=== PATIENT | male | born 1990 | race Caucasian/White ===

== ENCOUNTER 2017-10-31 16:17 | Emergency (ER) | payer OTHER ==
[2017-10-31] MEDS ORDERED: Acetaminophen/HYDROcodone 325-10 MG Tab PO ONE ×2 (16:18→16:24)
[2017-10-31] MEDS ORDERED: Silver Sulfadiazine 1% Crm 50 GM Tube TOP ONE (16:23)
[2017-10-31] MEDS ORDERED: Diphtheria,Pertussis(Acell),Tetanus Vaccine 0.5 ML SDV IM ONE (16:28)
[2017-10-31] MEDS ORDERED: Lidocaine 5% Oint 35.44 GM Tube TOP ONE (16:37)
[2017-10-31] MEDS ORDERED: Acetaminophen/HYDROcodone 325-10 MG Tab ONE (17:11)
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
== END 2017-10-31 17:15 | disposition home or self-care (01) ==
LOC: DL.ED 16:17
DX: T22.231A Burn of second degree of right upper arm, initial encounter (principal); T22.111A Burn of first degree of right forearm, initial encounter; Z91.018 Allergy to other foods; Z23 Encounter for immunization; X12.XXXA Contact with other hot fluids, initial encounter
CPT/HCPCS: 16020; 90471; 90715; 99283; A9270